=== PATIENT | female | born 1960 | race Caucasian/White ===

== ENCOUNTER 2020-11-09 18:29 | Emergency (ER) | payer OTHER ==
[~2020-11-09] VITALS: Ht 167.6 cm; Wt 80.7 kg
[~2020-11-09 18:29] MED LIST: ADVIL LIQUI-GE200 MG PO; CIPROFLOXACIN500 M1 PO; DESYREL; EFFEXOR XR150 MG PO; FLOMAX0.4 MG PO; MULTI-VITAMIN1 EAC1 PO; NAPROSYN500 MG PO; NORCO 5-325 TA1 EACH PO; PERCOCET 5-3251 EACH PO; PHENERGAN 25 MG25 MG PO; PROZAC 20 MG20 M1 PO
[2020-11-09 18:42] VITALS: BP 127/79
[2020-11-09] MEDS ORDERED: PROMETH-CODEIN 65 ML PO (19:37)
[2020-11-09] MEDS ORDERED: PREDNISONE 20 M20 MG PO (19:37)
== END 2020-11-09 19:45 | disposition home or self-care (01) ==
LOC: ER 18:29
DX: U07.1 COVID-19 (principal); F32.9 Major depressive disorder, single episode, unspecified; Z87.442 Personal history of urinary calculi; Z79.899 Other long term (current) drug therapy; Z88.8 Allergy status to other drugs, medicaments and biological substances